=== PATIENT | female | born 1995 | race Caucasian/White ===

== ENCOUNTER → 2017-09-28 | Emergency (ER) | payer OTHER ==
[~2017-09-28] VITALS: Ht 167.6 cm; Wt 56.7 kg
== END | disposition left against medical advice (07) ==
LOC: ER 15:09
DX: Z53.20 Procedure and treatment not carried out because of patient's decision for unspecified reasons (principal)

== ENCOUNTER 2023-09-13 22:47 | Outpatient (CLI) | payer OTHER ==
[2023-09-13] MEDS ORDERED: PRENATAL TABLE1 EAC1 PO (22:59)
[2023-09-13] MEDS ORDERED: RINGERS SOLUTION,LACTATED 1,000 ML IV SCH (23:00)
[2023-09-13 23:28] LABS: URINE APPEARANCE Clear; URINE BILIRRUBIN Negative (NEGATIVE); URINE BLOOD Negative; URINE COLOR Yellow; URINE LEUKOCYTE Small; URINE NITRATE Negative; URINE PROTEIN Negative (NEGATIVE)
[2023-09-13 23:32] LABS: URINE BACTERIA 931.1 uL (0.0-1933); URINE EPITHELIAL CELLS 60.8 uL (0.0-38.8); URINE RBC 24.7 uL (0.0-20.8); URINE WBC 26.4 uL (0.0-23.2)
[2023-09-14 00:04] LABS: URINE GLUCOSE 100 MG/DL (NEGATIVE)
[2023-09-14 00:05] LABS: HEMATOCRIT 33.5 % (36.0-45.00); HEMOGLOBIN 11.5 g/dL (12.0-15.00); MEAN CELL VOLUME 87.4 fL (80.00-100.00); MEAN CORPUSCULAR HGB CONC 34.4 g/dl (32.0-36.0); PLATELET COUNT 338 K/uL (150-450); RED BLOOD COUNT 3.83 M/uL (4.00-6.00); RED CELL DISTRIBUTION WIDTH 13.2 % (11.5-14.5)
== END 2023-09-14 09:01 | disposition home or self-care (01) ==
LOC: OBS/DEL
PROVIDERS: Obstetrics & Gynecology; ATTEND Specialist
DX: O46.93 Antepartum hemorrhage, unspecified, third trimester (principal); Z3A.28 28 weeks gestation of pregnancy

== ENCOUNTER 2023-09-16 08:52 | Outpatient (CLI) | payer OTHER ==
[~2023-09-16 08:52] MED LIST: PRENATAL TABLE1 EAC1 PO
== END 2023-09-16 08:53 | disposition home or self-care (01) ==
LOC: PRENATAL 08:52
PROVIDERS: ATTEND Obstetrics & Gynecology Maternal & Fetal Medicine
DX: O26.843 Uterine size-date discrepancy, third trimester (principal); O36.8130 Decreased fetal movements, third trimester, not applicable or unspecified; O36.5930 Maternal care for other known or suspected poor fetal growth, third trimester, not applicable or unspecified; Z3A.29 29 weeks gestation of pregnancy

== ENCOUNTER 2023-09-24 18:03 | Emergency (ER) | payer OTHER ==
[~2023-09-24] VITALS: Ht 157.5 cm; Wt 77.6 kg
== END 2023-09-24 22:58 | disposition home or self-care (01) ==
LOC: ER 18:04
DX: O99.891 Other specified diseases and conditions complicating pregnancy (principal); Z3A.30 30 weeks gestation of pregnancy; S39.82XA Other specified injuries of lower back, initial encounter; W17.89XA Other fall from one level to another, initial encounter; Y93.89 Activity, other specified; Y92.89 Other specified places as the place of occurrence of the external cause

== ENCOUNTER 2023-11-09 14:31 | Outpatient (CLI) | payer OTHER ==
[2023-11-09] VITALS (10 sets, daily range): BP systolic 74–112; BP diastolic 37–63; O2SAT 97–100
[2023-11-09] MEDS ORDERED: RINGERS SOLUTION,LACTATED 1,000 ML IV SCH (15:00)
[2023-11-09 15:19] LABS: HEMATOCRIT 32.3 % (36.0-45.00); HEMOGLOBIN 10.6 g/dL (12.0-15.00); MEAN CELL VOLUME 85.3 fL (80.00-100.00); MEAN CORPUSCULAR HGB CONC 32.8 g/dl (32.0-36.0); PLATELET COUNT 312 K/uL (150-450); RED BLOOD COUNT 3.78 M/uL (4.00-6.00); RED CELL DISTRIBUTION WIDTH 14.8 % (11.5-14.5)
[2023-11-09 15:20] LABS: PH,URINE 7.5 (5.0-8.0); URINE APPEARANCE Clear; URINE BILIRRUBIN Negative (NEGATIVE); URINE BLOOD Negative; URINE COLOR Yellow; URINE GLUCOSE Negative (NEGATIVE); URINE KETONE Negative (NEGATIVE); URINE LEUKOCYTE Large; URINE NITRATE Negative; URINE PROTEIN Negative (NEGATIVE)
[2023-11-09 15:23] LABS: URINE BACTERIA 1591.1 uL (0.0-1933); URINE EPITHELIAL CELLS 135.8 uL (0.0-38.8); URINE RBC 4.1 uL (0.0-20.8); URINE WBC 41.4 uL (0.0-23.2)
[2023-11-09 15:30] LABS: URINE CAST 0.15 uL (0.0-1.40)
[2023-11-09 15:35] LABS: INR 0.94; PROTHROMBIN TIME 10.3 SECONDS (9.0-11.5)
[2023-11-09 15:40] LABS: ALBUMIN 2.3 gm/dL (3.4-5.0); BILIRUBIN TOTAL 0.47 mg/dL (0.3-1.2); CALCIUM 8.3 mg/dL (8.5-10.1); CREATININE SERUM 0.62 mg/dL (0.55-1.02); GFR 113.8; GLOBULINA 3.4 G/DL (2.4-3.5); POTASSIUM 3.67 mEq/L (3.5-5.1); TOTAL PROTEIN 5.7 gm/dL (6.4-8.2)
[2023-11-09] MEDS ORDERED: ACETAMINOPHEN 500 MG GEL..CAP PO PRN (16:30)
[2023-11-09] MEDS ORDERED: AZITHROMYCIN 500 MG VIAL IV SCH (17:00)
[2023-11-09] MEDS ORDERED: AMPICILLIN SODIUM 1,000 MG VIAL IV SCH (18:00)
[2023-11-10 03:15] VITALS: BP 93/57
[2023-11-10 06:27] VITALS: BP 108/48; O2SAT 100
[2023-11-10] MEDS ORDERED: ZITHROMAX500 MG PO (08:19)
[2023-11-10 09:44] VITALS: BP 108/48
== END 2023-11-10 09:53 | disposition home or self-care (01) ==
LOC: OBS/DEL 14:31
PROVIDERS: Obstetrics & Gynecology; ATTEND Specialist
DX: O23.43 Unspecified infection of urinary tract in pregnancy, third trimester (principal); N39.0 Urinary tract infection, site not specified; Z3A.37 37 weeks gestation of pregnancy; B96.0 Mycoplasma pneumoniae [M. pneumoniae] as the cause of diseases classified elsewhere

== ENCOUNTER 2023-11-24 13:00 | Inpatient (IN) | payer OTHER ==
[~2023-11-24] VITALS: Ht 162.6 cm; Wt 82.1 kg
[~2023-11-24 13:00] MED LIST changes: +ZITHROMAX500 MG PO
[2023-12-01] VITALS (12 sets, daily range): BP systolic 107–128; BP diastolic 28–84
[2023-12-01] MEDS ORDERED: AMPICILLIN SODIUM 2,000 MG VIAL IV STA (06:34)
[2023-12-01] MEDS ORDERED: OXYTOCIN 500 ML IV SCH (06:45)
[2023-12-01] MEDS ORDERED: RINGERS SOLUTION,LACTATED 1,000 ML IV SCH (06:45)
[2023-12-01 06:50] LABS: HEMATOCRIT 36.3 % (36.0-45.00); HEMOGLOBIN 12.1 g/dL (12.0-15.00); MEAN CELL VOLUME 84.3 fL (80.00-100.00); MEAN CORPUSCULAR HEMOGLOBIN 28.2 pg (27.00-32.0); MEAN CORPUSCULAR HGB CONC 33.4 g/dl (32.0-36.0); PLATELET COUNT 300 K/uL (150-450); RED BLOOD COUNT 4.31 M/uL (4.00-6.00); RED CELL DISTRIBUTION WIDTH 16.6 % (11.5-14.5)
[2023-12-01 07:07] LABS: PH,URINE 6.5 (5.0-8.0); URINE APPEARANCE Clear; URINE BILIRRUBIN Negative (NEGATIVE); URINE BLOOD Negative; URINE COLOR Yellow; URINE GLUCOSE Negative (NEGATIVE); URINE KETONE Negative (NEGATIVE); URINE LEUKOCYTE Negative; URINE NITRATE Negative; URINE PROTEIN Negative (NEGATIVE)
[2023-12-01 07:09] LABS: INR < 0.93; PARTIAL THROMBOPLASTIN TIME 25.8 SECONDS (22.0-34.0); PROTHROMBIN TIME 10.2 SECONDS (9.0-11.5)
[2023-12-01 07:20] LABS: URINE BACTERIA 70.5 uL (0.0-1933); URINE RBC 2.7 uL (0.0-20.8); URINE WBC 8.6 uL (0.0-23.2)
[2023-12-01 07:26] LABS: ALBUMIN 2.4 gm/dL (3.4-5.0); BILIRUBIN TOTAL 0.26 mg/dL (0.3-1.2); CALCIUM 8.5 mg/dL (8.5-10.1); CREATININE SERUM 0.52 mg/dL (0.55-1.02); GFR 139.41; GLOBULINA 3.6 G/DL (2.4-3.5); POTASSIUM 3.92 mEq/L (3.5-5.1)
[2023-12-01 07:27] LABS: URINE CAST 0.15 uL (0.0-1.40)
[2023-12-01] MEDS ORDERED: MEPERIDINE HCL/PF 50 MG/ML VIAL IV ONE ×2 (08:45→12:00)
[2023-12-01] MEDS ORDERED: PROMETHAZINE HCL 25 MG/ML AMPUL IV ONE ×2 (08:45→12:00)
[2023-12-01] MEDS ORDERED: AMPICILLIN SODIUM 1,000 MG VIAL IV SCH (09:00)
[2023-12-01] MEDS ORDERED: OXYTOCIN 20 UNITS/1000ML RL PIGGYBAG IV ONE (15:15)
[2023-12-01] MEDS ORDERED: LIDOCAINE HCL 1% 2ML VIAL IJ ONE (15:15)
[2023-12-01] MEDS ORDERED: OxyCODONE HCL/APAP UD (PERCOCET) PO PRN (15:15)
[2023-12-01] MEDS ORDERED: CHLORHEXIDINE GLUCONATE 120 ML BOTTLE TOP ONE (15:15)
[2023-12-01] MEDS ORDERED: ACETAMINOPHEN 325 MG TABLET PO PRN (15:15)
[2023-12-01] MEDS ORDERED: ERYTHROMYCIN BASE OPHT 1GM EACH TUBE OP NR (15:15)
[2023-12-01] MEDS ORDERED: HYDROCORTISONE 2.5% 30 GM TUBE RECTAL SCH (17:00)
[2023-12-01] MEDS ORDERED: BENZOCAINE/MENTHOL 90 ML BOTTLE TOP SCH (17:00)
[2023-12-02 01:00] LABS: HEMATOCRIT 35.6 % (36.0-45.00); HEMOGLOBIN 11.7 g/dL (12.0-15.00); MEAN CELL VOLUME 84.5 fL (80.00-100.00); MEAN CORPUSCULAR HEMOGLOBIN 27.7 pg (27.00-32.0); MEAN CORPUSCULAR HGB CONC 32.8 g/dl (32.0-36.0); PLATELET COUNT 284 K/uL (150-450); RED BLOOD COUNT 4.21 M/uL (4.00-6.00); RED CELL DISTRIBUTION WIDTH 16.7 % (11.5-14.5)
[2023-12-02 01:23] VITALS: BP 101/58
[2023-12-02] MEDS ORDERED: IBUprofen 800 MG TABLET PO PRN (08:15)
[2023-12-02 10:08] VITALS: BP 112/74; O2SAT 98
[2023-12-02 16:12] VITALS: BP 100/60
[2023-12-03 01:11] VITALS: BP 100/60
[2023-12-03 09:05] VITALS: BP 114/70
== END 2023-12-03 13:38 | disposition home or self-care (01) | DRG 807 ==
LOC: OB/GYN 12-01 05:17 → LDR 12-01 05:17 → OB/GYN 12-01 13:00
PROVIDERS: ADMIT Specialist; ATTEND Specialist
PROC: 10E0XZZ Delivery of Products of Conception, External Approach (ICD-10-PCS; principal; 2023-12-01)
PROC: 3E033VJ Introduction of Other Hormone into Peripheral Vein, Percutaneous Approach (ICD-10-PCS; 2023-12-01)
PROC: 0W8NXZZ Division of Female Perineum, External Approach (ICD-10-PCS; 2023-12-01)
PROC: 4A1HXCZ Monitoring of Products of Conception, Cardiac Rate, External Approach (ICD-10-PCS; 2023-12-01)
DX: O99.824 Streptococcus B carrier state complicating childbirth (principal); Z37.0 Single live birth; Z3A.40 40 weeks gestation of pregnancy; Z20.822 Contact with and (suspected) exposure to COVID-19

== ENCOUNTER 2023-12-04 04:42 | Emergency (ER) | payer OTHER ==
[~2023-12-04] VITALS: Ht 162.6 cm; Wt 81.6 kg
[2023-12-04] MEDS ORDERED: OxyCODONE HCL/APAP UD (PERCOCET) PO STA (06:17)
[2023-12-04] MEDS ORDERED: KETOROLAC TROMETHAMINE 60 MG VIAL IM STA (06:17)
== END 2023-12-04 06:35 | disposition home or self-care (01) ==
LOC: ER 04:43
DX: N61.0 Mastitis without abscess (principal)